=== PATIENT | male | born 1995 | race African-American/Black ===

== ENCOUNTER 2017-09-23 19:58 | Emergency (ER) | payer BC, OTHER ==
[~2017-09-23 19:58] MED LIST: ISOVUE-370 76%-LOCM 1 ML ONE
[2017-09-23 21:21] LABS: #Eosinphils 0.2 thou/uL (0.0-0.7); #Lymphocytes 2.4 thou/uL (1.20-3.40); #Monocytes 0.6 thou/uL (0.11-0.59); #Neutrophils 3.4 thou/uL (1.40-6.50); %Basophils 0.4 % (0.0-1.0); %Eosinophils 3.1 % (0.0-10.0); %Lymphocytes 36.2 % (21.0-51.0); %Monocytes 8.9 % (0.0-10.0); Hematocrit 45.5 % (42.0-52.0); Mean Platelet Volume 8.8 fL (7.4-10.4); Red Blood Cell (RBC) Count 4.66 mill/uL (4.70-6.10); White Blood Cell (WBC) Count 6.7 thou/uL (4.8-10.8)
[2017-09-23 21:42] LABS: ALT (SGPT) 10 U/L (8-55); AST (SGOT) 15 U/L (5-34); Alkaline Phosphatase 74 U/L (40-150); Anion Gap 14 mmol/L (10-20); BUN (Urea Nitrogen) 10 mg/dL (8.9-20.6); Bilirubin, Total 2.6 mg/dL (0.2-1.2); CK (CPK) 223 U/L (30-200); Calc. Creatinine Clearance 0 mL/min (70-130); Calcium 9.6 mg/dL (7.8-10.44); Carbon Dioxide 26 mmol/L (22-29); Chloride 106 mmol/L (98-107); Estimated GFR-MDRD Greater than 90; Globulin 3.4 g/dL (2.4-3.5); Magnesium 2.4 mg/dL (1.6-2.6); Protein, Total 7.8 g/dL (6.0-8.3)
[2017-09-23] MEDS ORDERED: Ketorolac Tromethamine 30 MG/ML VIAL ONE (21:42)
[2017-09-23 21:45] LABS: Troponin I Less than 0.010 ng/mL (< 0.028)
--- NOTE | 2017-09-23 22:06 | RAD ---
PA AND LATERAL OF THE CHEST: 09/23/17 INDICATION: Chest pain and palpitations. COMPARISON: None. FINDINGS: The lungs are clear. The cardiomediastinal silhouette is normal. The lungs are mildly hyperexpanded. No acute osseous abnormality is evident. IMPRESSION: No definite acute cardiopulmonary abnormality. POS: [facility]
--- NOTE | 2017-09-23 23:59 | CT ---
CTA OF THE THORAX UTILIZING IV CONTRAST PE PROTOCOL AND 3D REFORMATTED IMAGING 09/23/17 INDICATION: Chest pain with history of asthma. FINDINGS: No central or segmental pulmonary embolus is evident. No enlarged lymph nodes are evident. The lungs are clear. No pleural effusion or pneumothorax is evident. The visualized upper abdomen is unremark able. No acute osseous abnormality is evident. IMPRESSION: No central or segmental pulmonary embolus. POS: [facility]
--- NOTE | 2017-10-03 16:11 | EKG ---
Test Reason : CHEST PAIN Blood Pressure : / mmHG Vent. Rate : 066 BPM Atrial Rate : 066 BPM P-R Int : 168 ms QRS Dur : 086 ms QT Int : 398 ms P-R-T Axes : 072 078 044 degrees QTc Int : 417 ms Normal sinus rhythm Left ventricular hypertrophy with repolarzation cahnges Borderline ECG Confirmed by DARYL SALINAS DO ([id number]), senior technical editor MARIANA BURTON ([id number]) on 10/03/2017 4:10:50 PM Referred By: Confirmed By:DARYL SALINAS DO
--- NOTE | 2017-10-03 16:12 | EKG ---
Test Reason : Blood Pressure : / mmHG Vent. Rate : 057 BPM Atrial Rate : 057 BPM P-R Int : 178 ms QRS Dur : 090 ms QT Int : 418 ms P-R-T Axes : 058 075 045 degrees QTc Int : [address] elevation, consider early repolarization, pericarditis, or injury Left ventricular hypertrophy with repolarzation vs pericarditis Abnormal ECG #2 No changes Confirmed by DARYL SALINAS DO ([id number]), news copy editor MARIANA BURTON ([id number]) on 10/03/2017 4:11:39 PM Referred By: Confirmed By:DARYL SALINAS DO
== END 2017-09-23 23:55 | disposition home or self-care (01) ==
LOC: ERS 19:58
DX: I30.9 Acute pericarditis, unspecified (principal); J45.909 Unspecified asthma, uncomplicated
CPT/HCPCS: 36415; 71020; 71275; 80053; 82553; 83735; 84443; 84484; 85025; 85379; 93005; 96372; J1885